=== PATIENT | female | born 1935 | race Caucasian/White ===

== ENCOUNTER 2019-07-07 20:24 | Inpatient (IN) | payer MEDICARE, BC ==
[~2019-07-07] VITALS: Ht 165.1 cm; Wt 62.2 kg
[2019-07-07] MEDS ORDERED: ONDANSETRON 4 MG/2 ML VIAL IV ONE (20:45)
[2019-07-07] MEDS ORDERED: MORPHINE SULFATE 2 MG/1 ML DISP.SYRIN IV ONE (20:45)
[2019-07-07] MEDS ORDERED: MORPHINE SULFATE 4 MG/1 ML DISP.SYRIN ONE ×2 (21:00→22:04)
[2019-07-07] MEDS ORDERED: ONDANSETRON 4 MG/2 ML VIAL ONE (21:00)
[2019-07-07 21:19] LABS: BASOPHILS % (AUTO) 0.5 % (0.0-2.0); EOSINOPHILS # (AUTO) 0.3 K/uL (0.0-0.7); EOSINOPHILS % (AUTO) 2.9 % (0.0-7.0); HEMATOCRIT 31.3 % (31.2-41.9); HEMOGLOBIN 10.6 g/dL (10.9-14.3); LYMPHOCYTES # (AUTO) 1.1 K/uL (20.0-40.0); LYMPHOCYTES % (AUTO) 12.3 % (20.5-51.5); MEAN CORPUSCULAR HEMOGLOBIN 35.2 uug (24.7-32.8); MEAN CORPUSCULAR HGB CONC 34 g/dL (32.3-35.6); MEAN CORPUSCULAR VOLUME 104.1 fL (75.5-95.3); MONOCYTES # (AUTO) 0.6 K/uL (2.0-10.0); MONOCYTES % (AUTO) 6.3 % (0.0-11.0); NEUTROPHILS # (AUTO) 7.2 K/uL (1.8-8.9); PLATELET COUNT (AUTO) 230 K/uL (179-408); RED BLOOD CELL COUNT(AUTO) 3.01 MIL/uL (3.63-4.92); WHITE BLOOD COUNT (AUTO) 9.2 K/uL (3.8-11.8)
[2019-07-07 22:04] LABS: CREATININE 0.8 mg/dL (0.6-1.3); POTASSIUM 3.9 mmol/L (3.5-5.1)
[2019-07-07] MEDS ORDERED: ESCI5TAB PO (22:09)
[2019-07-07] MEDS ORDERED: METO50TA16 PO (22:09)
[2019-07-07] MEDS ORDERED: PANT40TA4 PO (22:09)
[2019-07-07] MEDS ORDERED: DICY20TA11 PO (22:09)
[2019-07-07] MEDS ORDERED: SIMV-46 PO (22:09)
[2019-07-07] MEDS ORDERED: SERT25TA PO (22:09)
[2019-07-07] MEDS ORDERED: ALEN70TA6 PO (22:09)
[2019-07-07] MEDS ORDERED: OXYC-128 PO (22:09)
[2019-07-07 22:10] LABS: BILIRUBIN,DIRECT 0.1 mg/dL (0.0-0.2); BILIRUBIN,TOTAL 0.2 mg/dL (0.2-1.0); TOTAL PROTEIN, SERUM 6.9 g/dL (6.4-8.2)
[2019-07-07] MEDS ORDERED: METH-406 PO (22:11)
[2019-07-07] MEDS ORDERED: MORPHINE SULFATE 4 MG/1 ML DISP.SYRIN IV ONE (22:15)
[2019-07-07] MEDS ORDERED: Z GUARD REMEDY PASTE 57 GM TUBE TOP PRN (22:30)
[2019-07-07] MEDS ORDERED: MAGNESIUM HYDROXIDE 30 ML LIQUID UDC PO PRN (22:30)
[2019-07-07] MEDS ORDERED: ACETAMINOPHEN 325 MG TABLET PO PRN (22:30)
[2019-07-07] MEDS ORDERED: ONDANSETRON 4 MG/2 ML VIAL IV PRN (22:30)
[2019-07-07] MEDS: MORPHINE SULFATE 2 MG/1 ML DISP.SYRIN IV PRN (22:52)
[2019-07-07 22:56] VITALS: BP 122/60
[2019-07-08] VITALS (11 sets, daily range): BP systolic 95–126; BP diastolic 44–64
[2019-07-08] MEDS: OXYCODONE/APAP 5-325 MG TABLET PO PRN ×4 (01:23→12:31)
[2019-07-08] MEDS: MORPHINE SULFATE 2 MG/1 ML DISP.SYRIN IV PRN ×2 (02:54→10:02)
[2019-07-08 06:25] LABS: BASOPHILS % (AUTO) 0.3 % (0.0-2.0); EOSINOPHILS # (AUTO) 0.1 K/uL (0.0-0.7); EOSINOPHILS % (AUTO) 0.8 % (0.0-7.0); HEMATOCRIT 26.7 % (31.2-41.9); LYMPHOCYTES # (AUTO) 1.2 K/uL (20.0-40.0); LYMPHOCYTES % (AUTO) 11.6 % (20.5-51.5); MEAN CORPUSCULAR HEMOGLOBIN 34.4 uug (24.7-32.8); MEAN CORPUSCULAR HGB CONC 34 g/dL (32.3-35.6); MEAN CORPUSCULAR VOLUME 102.2 fL (75.5-95.3); MONOCYTES # (AUTO) 0.9 K/uL (2.0-10.0); MONOCYTES % (AUTO) 8.7 % (0.0-11.0); NEUTROPHILS % (AUTO) 78.6 % (38.5-71.5); PLATELET COUNT (AUTO) 160 K/uL (179-408); RED BLOOD CELL COUNT(AUTO) 2.62 MIL/uL (3.63-4.92); WHITE BLOOD COUNT (AUTO) 10.1 K/uL (3.8-11.8)
[2019-07-08 06:40] LABS: CREATININE 0.7 mg/dL (0.6-1.3); MAGNESIUM 1.3 mg/dL (1.8-2.4); PHOSPHOROUS 2.8 mg/dL (2.5-4.9)
[2019-07-08 07:16] LABS: *BILIRUBIN,URIN NEGATIVE (NEGATIVE); *CLARITY,URINE CLEAR (CLEAR); *COLOR,URINE YELLOW (YELLOW); *KETONES,URINE NEGATIVE (NEGATIVE); *UROBILINOGEN,URINE 0.2 E.U./dl (NORMAL); LEUKOCYTE ESTERASE ,URINE 2+ (NEGATIVE); NITRITE, URINE POSITIVE (NEGATIVE); UGLUCOSE NEGATIVE (NEGATIVE)
[2019-07-08 07:36] LABS: *BLOOD, URINE TRACE (NEGATIVE)
[2019-07-08 07:39] LABS: BACTERIA,URINE MODERATE /HPF (NONE SEEN); SQUAMOUS EPITHELIAL CELL,UR FEW /HPF (NONE SEEN); WBC,URINE 20-50 /HPF (0-3)
[2019-07-08] MEDS: PANTOPRAZOLE SODIUM 40 MG TABLET.DR PO SCH (08:19)
[2019-07-08] MEDS: MAGNESIUM SULFATE/D5W 100 ML IV SCH ×2 (08:19→09:34)
[2019-07-08] MEDS: METOPROLOL TARTRATE 50 MG TABLET PO SCH (09:00)
[2019-07-08] MEDS: DICYCLOMINE HCL 20 MG TABLET PO SCH ×3 (09:00→17:00)
[2019-07-08] MEDS ORDERED: Medication Not On Formulary EA (Sertraline Hcl (Zoloft) 25 MG) PO SCH (09:00)
[2019-07-08] MEDS ORDERED: Medication Not On Formulary EA (Escitalopram Oxalate (Lexapro) 5 MG) PO SCH (09:00)
[2019-07-08] MEDS: ESCITALOPRAM OXALATE 10 MG TABLET PO SCH (09:01)
[2019-07-08] MEDS: SERTRALINE HCL 50 MG TABLET PO SCH (09:02)
[2019-07-08] MEDS ORDERED: IV D5 1/2 NS 1000 ML 1,000 ML IV PRN (09:24)
[2019-07-08] MEDS ORDERED: SEVOFLURANE 250 ML BOTTLE IH ONE (13:19)
[2019-07-08] MEDS ORDERED: DEXAMETHASONE SOD PHOSPHATE 4 MG INJ IV ONE (13:19)
[2019-07-08] MEDS ORDERED: LIDOCAINE-MPF 2% 5 ML VIAL MC ONE (13:19)
[2019-07-08] MEDS ORDERED: PROPOFOL 200 MG/20 ML BOTTLE IV ONE (13:19)
[2019-07-08] MEDS ORDERED: CEFAZOLIN 1 G VIAL MC ONE (13:19)
[2019-07-08] MEDS ORDERED: POLYMYXIN B SULFATE 500,000 UNITS, BACITRACIN 50,000 UNITS, NORMAL SALINE 20 ML MC ONE ×3 (14:30)
[2019-07-08] MEDS ORDERED: BUPIVACAINE 0.25% 30 ML VIAL ONE (16:43)
[2019-07-08] MEDS ORDERED: FENTANYL CITRATE 100 MCG/2 ML AMPUL ONE (17:47)
[2019-07-08 19:57] LABS: BASOPHILS % (AUTO) 0.1 % (0.0-2.0); EOSINOPHILS # (AUTO) 0.1 K/uL (0.0-0.7); EOSINOPHILS % (AUTO) 0.7 % (0.0-7.0); HEMOGLOBIN 9.1 g/dL (10.9-14.3); LYMPHOCYTES # (AUTO) 0.5 K/uL (20.0-40.0); LYMPHOCYTES % (AUTO) 4.4 % (20.5-51.5); MEAN CORPUSCULAR HEMOGLOBIN 34.8 uug (24.7-32.8); MEAN CORPUSCULAR HGB CONC 34 g/dL (32.3-35.6); MEAN CORPUSCULAR VOLUME 103.2 fL (75.5-95.3); MONOCYTES # (AUTO) 0.5 K/uL (2.0-10.0); MONOCYTES % (AUTO) 4.6 % (0.0-11.0); NEUTROPHILS # (AUTO) 10.4 K/uL (1.8-8.9); NEUTROPHILS % (AUTO) 90.2 % (38.5-71.5); PLATELET COUNT (AUTO) 208 K/uL (179-408); RED BLOOD CELL COUNT(AUTO) 2.62 MIL/uL (3.63-4.92); WHITE BLOOD COUNT (AUTO) 11.5 K/uL (3.8-11.8)
[2019-07-08 20:05] LABS: CREATININE 0.7 mg/dL (0.6-1.3); POTASSIUM 4.1 mmol/L (3.5-5.1)
[2019-07-08] MEDS ORDERED: IV LACTATED RINGERS SOLUTION 1,000 ML IV PRN (20:45)
[2019-07-08] MEDS: SIMVASTATIN 20 MG TABLET PO SCH (21:18)
[2019-07-09] VITALS: BP 114/42
[2019-07-09] MEDS ORDERED: CEFAZOLIN 2 G in IV DEXTROSE 5% 100 ML IV SCH (02:00)
[2019-07-09] MEDS: OXYCODONE/APAP 5-325 MG TABLET PO PRN ×4 (05:15→20:59)
[2019-07-09 05:35] VITALS: BP 115/50
[2019-07-09 06:30] LABS: BASOPHILS % (AUTO) 0.1 % (0.0-2.0); HEMATOCRIT 24.2 % (31.2-41.9); HEMOGLOBIN 8.6 g/dL (10.9-14.3); LYMPHOCYTES # (AUTO) 0.5 K/uL (20.0-40.0); LYMPHOCYTES % (AUTO) 3.7 % (20.5-51.5); MEAN CORPUSCULAR HEMOGLOBIN 36.3 uug (24.7-32.8); MEAN CORPUSCULAR HGB CONC 36 g/dL (32.3-35.6); MEAN CORPUSCULAR VOLUME 101.9 fL (75.5-95.3); MONOCYTES % (AUTO) 7.4 % (0.0-11.0); NEUTROPHILS # (AUTO) 11.6 K/uL (1.8-8.9); NEUTROPHILS % (AUTO) 88.8 % (38.5-71.5); PLATELET COUNT (AUTO) 212 K/uL (179-408)
[2019-07-09 06:41] LABS: RED BLOOD CELL COUNT(AUTO) 2.38 MIL/uL (3.63-4.92)
[2019-07-09 06:54] LABS: CREATININE 0.7 mg/dL (0.6-1.3); MAGNESIUM 1.7 mg/dL (1.8-2.4); POTASSIUM 4.6 mmol/L (3.5-5.1)
[2019-07-09] MEDS: PANTOPRAZOLE SODIUM 40 MG TABLET.DR PO SCH (07:30)
[2019-07-09] MEDS: MORPHINE SULFATE 2 MG/1 ML DISP.SYRIN IV PRN (08:12)
[2019-07-09] MEDS: METOPROLOL TARTRATE 50 MG TABLET PO SCH (09:00)
[2019-07-09] MEDS: ENOXAPARIN SODIUM 40 MG/0.4 ML DISP.SYRIN SQ SCH (09:07)
[2019-07-09] MEDS: ESCITALOPRAM OXALATE 10 MG TABLET PO SCH (09:11)
[2019-07-09] MEDS: SERTRALINE HCL 50 MG TABLET PO SCH (09:12)
[2019-07-09] MEDS: DICYCLOMINE HCL 20 MG TABLET PO SCH ×3 (09:12→16:39)
[2019-07-09] MEDS: CEFTRIAXONE 1 G in IV DEXTROSE 5% 50 ML IV SCH (11:16)
[2019-07-09 11:24] VITALS: BP 116/41
[2019-07-09 15:08] VITALS: BP 107/44
[2019-07-09] MEDS: MAGNESIUM SULFATE/D5W 100 ML IV SCH ×2 (16:28→19:27)
[2019-07-09 20:00] VITALS: BP 100/45
[2019-07-09] MEDS: SIMVASTATIN 20 MG TABLET PO SCH (20:24)
[2019-07-10] MEDS: OXYCODONE/APAP 5-325 MG TABLET PO PRN ×3 (01:54→10:46)
[2019-07-10 04:00] VITALS: BP 112/48
[2019-07-10] MEDS: PANTOPRAZOLE SODIUM 40 MG TABLET.DR PO SCH (06:38)
[2019-07-10 06:48] LABS: CREATININE 0.6 mg/dL (0.6-1.3); MAGNESIUM 1.9 mg/dL (1.8-2.4); POTASSIUM 4.3 mmol/L (3.5-5.1)
[2019-07-10] MEDS: DICYCLOMINE HCL 20 MG TABLET PO SCH ×2 (08:22→12:49)
[2019-07-10] MEDS: ESCITALOPRAM OXALATE 10 MG TABLET PO SCH (08:22)
[2019-07-10] MEDS: SERTRALINE HCL 50 MG TABLET PO SCH (08:22)
[2019-07-10] MEDS: ENOXAPARIN SODIUM 40 MG/0.4 ML DISP.SYRIN SQ SCH (08:24)
[2019-07-10] MEDS: CEFTRIAXONE 1 G in IV DEXTROSE 5% 50 ML IV SCH (09:21)
[2019-07-10 11:08] VITALS: BP 109/63
== END 2019-07-10 13:20 | DRG 482 ==
LOC: ER 20:25 → MERGE 22:21 → MEDSURG3 22:21
PROVIDERS: ADMIT Internal Medicine; ATTEND Internal Medicine
PROC: 0QS606Z Reposition Right Upper Femur with Intramedullary Internal Fixation Device, Open Approach (ICD-10-PCS; principal; 2019-07-08)
DX: M80.051A Age-related osteoporosis with current pathological fracture, right femur, initial encounter for fracture (principal); W18.30XA Fall on same level, unspecified, initial encounter; Y92.019 Unspecified place in single-family (private) house as the place of occurrence of the external cause; Y99.9 Unspecified external cause status; I27.20 Pulmonary hypertension, unspecified; K58.9 Irritable bowel syndrome, unspecified; K21.9 Gastro-esophageal reflux disease without esophagitis; M81.0 Age-related osteoporosis without current pathological fracture; G89.4 Chronic pain syndrome; E78.5 Hyperlipidemia, unspecified; Z79.899 Other long term (current) drug therapy; Z66 Do not resuscitate; I08.1 Rheumatic disorders of both mitral and tricuspid valves; F41.9 Anxiety disorder, unspecified; F32.9 Major depressive disorder, single episode, unspecified; I11.9 Hypertensive heart disease without heart failure; M47.812 Spondylosis without myelopathy or radiculopathy, cervical region; M47.9 Spondylosis, unspecified; E78.00 Pure hypercholesterolemia, unspecified
CPT/HCPCS: 36415; 70030-TC; 70450; 71045; 72125; 73502; 73503; 73551; 83735; 84100; 85025; 85730; 87077; 87086; 93005; 93307; A4649; A4663; C1713; C1769; G0378; J0690; J0696; J1100; J1650; J2270; J2405; J3010; J3475; J3490; J7040; J7060; J7120

== ENCOUNTER 2019-07-10 13:39 | Inpatient (IN) | payer MEDICARE, BC ==
[~2019-07-10] VITALS: Ht 170.2 cm; Wt 57.2 kg
[~2019-07-10 13:39] MED LIST: ALEN70TA6 PO; DICY20TA11 PO; ESCI5TAB PO; METH-406 PO; METO50TA16 PO; OXYC-128 PO; PANT40TA4 PO; SERT25TA PO; SIMV-46 PO
[2019-07-10] MEDS ORDERED: HYDROCODONE/APAP 5-325MG TABLET PO PRN (13:45)
[2019-07-10] MEDS ORDERED: Z GUARD REMEDY PASTE 57 GM TUBE TOP PRN (13:45)
[2019-07-10] MEDS ORDERED: ACETAMINOPHEN 325 MG TABLET PO PRN (13:45)
[2019-07-10] MEDS ORDERED: ZOLPIDEM 5 MG TABLET PO PRN (13:45)
[2019-07-10] MEDS ORDERED: ONDANSETRON 4 MG/2 ML VIAL IV PRN (13:45)
[2019-07-10] MEDS ORDERED: MAGNESIUM HYDROXIDE 30 ML LIQUID UDC PO PRN (13:45)
[2019-07-10 14:01] VITALS: BP 104/43
[2019-07-10 16:31] VITALS: BP 91/45
[2019-07-10] MEDS: OXYCODONE/APAP 5-325 MG TABLET PO PRN ×2 (16:36→22:47)
[2019-07-10] MEDS: DICYCLOMINE HCL 20 MG TABLET PO SCH (16:43)
[2019-07-10] MEDS ORDERED: ENOXAPARIN SODIUM 40 MG/0.4 ML DISP.SYRIN SQ SCH (19:00)
[2019-07-10] MEDS ORDERED: DOCUSATE SODIUM 100 MG CAPSULE PO SCH (21:00)
[2019-07-10] MEDS: SIMVASTATIN 20 MG TABLET PO SCH (21:31)
[2019-07-10] MEDS: METHOCARBAMOL 750 MG TABLET PO SCH (21:32)
[2019-07-10 22:40] VITALS: BP 102/38
[2019-07-11] MEDS: OXYCODONE/APAP 5-325 MG TABLET PO PRN ×4 (04:34→23:03)
[2019-07-11 05:24] VITALS: BP 112/75
[2019-07-11] MEDS: METHOCARBAMOL 750 MG TABLET PO SCH ×3 (05:48→21:28)
[2019-07-11] MEDS: PANTOPRAZOLE SODIUM 40 MG TABLET.DR PO SCH (06:37)
[2019-07-11] MEDS ORDERED: PANTOPRAZOLE SODIUM 40 MG TABLET.DR PO SCH (07:00)
[2019-07-11 07:30] VITALS: BP 104/45
[2019-07-11] MEDS: METOPROLOL TARTRATE 50 MG TABLET PO SCH (09:00)
[2019-07-11] MEDS: ESCITALOPRAM OXALATE 10 MG TABLET PO SCH (09:01)
[2019-07-11] MEDS: DICYCLOMINE HCL 20 MG TABLET PO SCH ×3 (09:01→17:33)
[2019-07-11] MEDS: SERTRALINE HCL 50 MG TABLET PO SCH (09:01)
[2019-07-11] MEDS: ENOXAPARIN SODIUM 40 MG/0.4 ML DISP.SYRIN SQ SCH (09:15)
[2019-07-11] MEDS ORDERED: CEFTRIAXONE 1 G in IV DEXTROSE 5% 50 ML IV SCH (10:00)
[2019-07-11 16:28] VITALS: BP 104/45
[2019-07-11 20:31] VITALS: BP 105/60
[2019-07-11] MEDS: SIMVASTATIN 20 MG TABLET PO SCH (20:42)
[2019-07-11] MEDS: CEphaleXIN 500 MG CAPSULE PO SCH (20:44)
[2019-07-12 05:34] VITALS: BP 103/45
[2019-07-12] MEDS: METHOCARBAMOL 750 MG TABLET PO SCH ×3 (06:05→21:32)
[2019-07-12] MEDS: PANTOPRAZOLE SODIUM 40 MG TABLET.DR PO SCH (06:05)
[2019-07-12 07:30] VITALS: BP 134/41
[2019-07-12] MEDS: ESCITALOPRAM OXALATE 10 MG TABLET PO SCH (08:43)
[2019-07-12] MEDS: OXYCODONE/APAP 5-325 MG TABLET PO PRN ×3 (08:44→22:30)
[2019-07-12] MEDS: CEphaleXIN 500 MG CAPSULE PO SCH ×2 (08:44→21:07)
[2019-07-12] MEDS: SERTRALINE HCL 50 MG TABLET PO SCH (08:44)
[2019-07-12] MEDS: DICYCLOMINE HCL 20 MG TABLET PO SCH ×3 (08:46→17:28)
[2019-07-12] MEDS: ENOXAPARIN SODIUM 40 MG/0.4 ML DISP.SYRIN SQ SCH (08:54)
[2019-07-12] MEDS: METOPROLOL TARTRATE 50 MG TABLET PO SCH (08:55)
[2019-07-12 16:00] VITALS: BP 115/50
[2019-07-12] MEDS: SIMVASTATIN 20 MG TABLET PO SCH (21:07)
[2019-07-12 23:07] VITALS: BP 121/46
[2019-07-13] MEDS ORDERED: OXYCODONE HCL 5 MG TABLET PO PRN
[2019-07-13] MEDS: OXYCODONE HCL 5 MG TABLET PO PRN ×4 (01:42→17:33)
[2019-07-13 04:10] VITALS: BP 101/50
[2019-07-13] MEDS: METHOCARBAMOL 750 MG TABLET PO SCH ×3 (05:17→21:44)
[2019-07-13] MEDS: PANTOPRAZOLE SODIUM 40 MG TABLET.DR PO SCH (06:15)
[2019-07-13 07:52] VITALS: BP 91/48
[2019-07-13] MEDS: ESCITALOPRAM OXALATE 10 MG TABLET PO SCH (08:08)
[2019-07-13] MEDS: DICYCLOMINE HCL 20 MG TABLET PO SCH ×3 (08:08→17:34)
[2019-07-13] MEDS: CEphaleXIN 500 MG CAPSULE PO SCH ×2 (08:09→20:37)
[2019-07-13] MEDS: SERTRALINE HCL 50 MG TABLET PO SCH (08:09)
[2019-07-13] MEDS: METOPROLOL TARTRATE 50 MG TABLET PO SCH (08:10)
[2019-07-13] MEDS: ENOXAPARIN SODIUM 40 MG/0.4 ML DISP.SYRIN SQ SCH (08:15)
[2019-07-13 16:00] VITALS: BP 121/52
[2019-07-13 19:53] VITALS: BP 102/50
[2019-07-13] MEDS: SIMVASTATIN 20 MG TABLET PO SCH (20:37)
[2019-07-13] MEDS: OXYCODONE HCL 10 MG TAB.SR.12H PO SCH (20:38)
[2019-07-14] MEDS: OXYCODONE/APAP 5-325 MG TABLET PO PRN ×3 (02:53→17:52)
[2019-07-14 06:00] VITALS: BP 101/45
[2019-07-14] MEDS: METHOCARBAMOL 750 MG TABLET PO SCH ×3 (06:02→21:48)
[2019-07-14] MEDS: PANTOPRAZOLE SODIUM 40 MG TABLET.DR PO SCH (06:02)
[2019-07-14 07:43] VITALS: BP 110/44
[2019-07-14] MEDS: ESCITALOPRAM OXALATE 10 MG TABLET PO SCH (08:47)
[2019-07-14] MEDS: OXYCODONE HCL 10 MG TAB.SR.12H PO SCH ×2 (08:48→20:23)
[2019-07-14] MEDS: CEphaleXIN 500 MG CAPSULE PO SCH ×2 (08:49→20:23)
[2019-07-14] MEDS: DICYCLOMINE HCL 20 MG TABLET PO SCH ×3 (08:49→16:58)
[2019-07-14] MEDS: SERTRALINE HCL 50 MG TABLET PO SCH (08:50)
[2019-07-14] MEDS: ENOXAPARIN SODIUM 40 MG/0.4 ML DISP.SYRIN SQ SCH (08:56)
[2019-07-14] MEDS: METOPROLOL TARTRATE 50 MG TABLET PO SCH (09:00)
[2019-07-14 15:04] VITALS: BP 119/51
[2019-07-14] MEDS ORDERED: BISACODYL 10 MG SUPP.RECT RC PRN (19:15)
[2019-07-14 20:03] VITALS: BP 116/58
[2019-07-14] MEDS: SIMVASTATIN 20 MG TABLET PO SCH (20:23)
[2019-07-14] MEDS: SENNOSIDES 1 TABLET PO SCH (20:24)
[2019-07-15] MEDS: OXYCODONE/APAP 5-325 MG TABLET PO PRN ×4 (00:09→13:57)
[2019-07-15 05:21] VITALS: BP 95/51
[2019-07-15] MEDS: METHOCARBAMOL 750 MG TABLET PO SCH ×3 (06:00→21:04)
[2019-07-15] MEDS: PANTOPRAZOLE SODIUM 40 MG TABLET.DR PO SCH (06:00)
[2019-07-15 08:00] VITALS: BP 129/49
[2019-07-15] MEDS: OXYCODONE HCL 10 MG TAB.SR.12H PO SCH ×2 (08:08→21:05)
[2019-07-15] MEDS: ESCITALOPRAM OXALATE 10 MG TABLET PO SCH (08:09)
[2019-07-15] MEDS: DOCUSATE SODIUM 100 MG CAPSULE PO SCH (08:09)
[2019-07-15] MEDS: SERTRALINE HCL 50 MG TABLET PO SCH (08:10)
[2019-07-15] MEDS: DICYCLOMINE HCL 20 MG TABLET PO SCH ×3 (08:10→16:50)
[2019-07-15] MEDS: CEphaleXIN 500 MG CAPSULE PO SCH ×2 (08:11→21:05)
[2019-07-15] MEDS: ENOXAPARIN SODIUM 40 MG/0.4 ML DISP.SYRIN SQ SCH (08:12)
[2019-07-15] MEDS: METOPROLOL TARTRATE 50 MG TABLET PO SCH (08:16)
[2019-07-15 17:48] VITALS: BP 106/48
[2019-07-15 19:40] VITALS: BP 106/48
[2019-07-15] MEDS: SIMVASTATIN 20 MG TABLET PO SCH (21:05)
[2019-07-15] MEDS: SENNOSIDES 1 TABLET PO SCH (21:05)
[2019-07-16] MEDS: OXYCODONE/APAP 5-325 MG TABLET PO PRN ×3 (03:10→18:32)
[2019-07-16] MEDS: PANTOPRAZOLE SODIUM 40 MG TABLET.DR PO SCH (06:18)
[2019-07-16] MEDS: OXYCODONE HCL 10 MG TAB.SR.12H PO SCH ×3 (06:19→21:15)
[2019-07-16] MEDS: METHOCARBAMOL 750 MG TABLET PO SCH ×3 (06:19→21:15)
[2019-07-16 06:48] VITALS: BP 115/45
[2019-07-16 08:00] VITALS: BP 100/50
[2019-07-16] MEDS: DOCUSATE SODIUM 100 MG CAPSULE PO SCH (08:32)
[2019-07-16] MEDS: ESCITALOPRAM OXALATE 10 MG TABLET PO SCH (08:32)
[2019-07-16] MEDS: SERTRALINE HCL 50 MG TABLET PO SCH (08:36)
[2019-07-16] MEDS: ENOXAPARIN SODIUM 40 MG/0.4 ML DISP.SYRIN SQ SCH (08:36)
[2019-07-16] MEDS: DICYCLOMINE HCL 20 MG TABLET PO SCH ×3 (08:36→17:16)
[2019-07-16] MEDS: METOPROLOL TARTRATE 50 MG TABLET PO SCH (08:37)
[2019-07-16] MEDS: CLONAZEPAM 0.5 MG TABLET PO PRN (12:13)
[2019-07-16 20:12] VITALS: BP 113/61
[2019-07-16] MEDS: SENNOSIDES 1 TABLET PO SCH (21:14)
[2019-07-16] MEDS: SIMVASTATIN 20 MG TABLET PO SCH (21:14)
[2019-07-17] VITALS (9 sets, daily range): BP systolic 95–107; BP diastolic 46–58
[2019-07-17] MEDS: OXYCODONE/APAP 5-325 MG TABLET PO PRN ×4 (03:34→22:44)
[2019-07-17] MEDS: PANTOPRAZOLE SODIUM 40 MG TABLET.DR PO SCH (06:07)
[2019-07-17] MEDS: OXYCODONE HCL 10 MG TAB.SR.12H PO SCH ×3 (06:07→21:01)
[2019-07-17] MEDS: METHOCARBAMOL 750 MG TABLET PO SCH ×3 (06:07→21:00)
[2019-07-17 07:31] LABS: THYROID STIMULATING HORMONE 2.936 mIU/mL (0.358-3.740)
[2019-07-17 07:48] LABS: CREATININE 0.5 mg/dL (0.6-1.3); PHOSPHOROUS 3.9 mg/dL (2.5-4.9)
[2019-07-17 07:49] LABS: ALANINE AMINOTRANSFERASE 13 U/L (14-59); ALKALINE PHOSPHATASE 46 U/L (50-136); ASPARTATE AMINOTRANSFERASE 20 U/L (15-37); CHOLESTEROL 132 mg/dL (<200); HDL CHOLESTEROL 80 mg/dL (40-60); MAGNESIUM 1.6 mg/dL (1.8-2.4); TOTAL PROTEIN, SERUM 5.8 g/dL (6.4-8.2); TRIGLYCERIDES 73 MG/DL (30-150)
[2019-07-17 07:50] LABS: BILIRUBIN,TOTAL 0.8 mg/dL (0.2-1.0); CARBON DIOXIDE 33 mmol/L (21-32); CHLORIDE 98 mmol/L (98-107); GLUCOSE 100 mg/dL (74-106); UREA NITROGEN, BLOOD 8 mg/dL (7-18)
[2019-07-17 08:06] LABS: WHITE BLOOD COUNT (AUTO) 9.8 K/UL (4.0-11.2)
[2019-07-17 08:07] LABS: LYMPHOCYTES % (AUTO) 10.1 % (20.5-51.5); MEAN CORPUSCULAR HEMOGLOBIN 35.4 UUG (27.0-31.0); MEAN CORPUSCULAR HGB CONC 33 g/dL (32.0-37.0); MEAN CORPUSCULAR VOLUME 106.7 FL (81.0-99.0); NEUTROPHILS % (AUTO) 71.9 % (38.5-71.5); PLATELET COUNT (AUTO) 388 K/UL (150-450)
[2019-07-17 08:08] LABS: BASOPHILS # (AUTO) 0.1 K/uL (0.0-8.0); BASOPHILS % (AUTO) 0.6 % (0.0-2.0); EOSINOPHILS # (AUTO) 0.4 K/uL (0.0-0.7); EOSINOPHILS % (AUTO) 3.9 % (0.0-7.0); MONOCYTES # (AUTO) 1.3 K/UL (0.1-1.30); MONOCYTES % (AUTO) 13.5 % (0.0-11.0)
[2019-07-17 08:11] LABS: RED BLOOD CELL COUNT(AUTO) 1.97 MIL/UL (4.2-5.4)
[2019-07-17] MEDS: DOCUSATE SODIUM 100 MG CAPSULE PO SCH (08:13)
[2019-07-17] MEDS: ESCITALOPRAM OXALATE 10 MG TABLET PO SCH (08:14)
[2019-07-17] MEDS: DICYCLOMINE HCL 20 MG TABLET PO SCH ×3 (08:15→16:23)
[2019-07-17] MEDS: SERTRALINE HCL 50 MG TABLET PO SCH (08:16)
[2019-07-17] MEDS: METOPROLOL TARTRATE 50 MG TABLET PO SCH (08:25)
[2019-07-17] MEDS: ENOXAPARIN SODIUM 40 MG/0.4 ML DISP.SYRIN SQ SCH (09:00)
[2019-07-17] MEDS ORDERED: MAGNESIUM OXIDE 400 MG TABLET PO ONE (09:15)
[2019-07-17] MEDS: SIMVASTATIN 20 MG TABLET PO SCH (21:00)
[2019-07-17] MEDS: SENNOSIDES 1 TABLET PO SCH (21:00)
[2019-07-18] MEDS: PANTOPRAZOLE SODIUM 40 MG TABLET.DR PO SCH (06:02)
[2019-07-18] MEDS: OXYCODONE HCL 10 MG TAB.SR.12H PO SCH ×3 (06:02→21:02)
[2019-07-18] MEDS: METHOCARBAMOL 750 MG TABLET PO SCH ×3 (06:02→21:02)
[2019-07-18 06:13] VITALS: BP 123/47
[2019-07-18 07:39] LABS: HEMOGLOBIN 7.8 g/dL (10.9-14.3); MEAN CORPUSCULAR HEMOGLOBIN 34.6 uug (24.7-32.8); MEAN CORPUSCULAR VOLUME 103.6 fL (75.5-95.3); WHITE BLOOD COUNT (AUTO) 8.9 K/uL (3.8-11.8)
[2019-07-18 07:40] LABS: EOSINOPHILS # (AUTO) 0.3 K/uL (0.0-0.7); EOSINOPHILS % (AUTO) 3.8 % (0.0-7.0); LYMPHOCYTES # (AUTO) 0.9 K/uL (20.0-40.0); LYMPHOCYTES % (AUTO) 9.8 % (20.5-51.5); MEAN CORPUSCULAR HGB CONC 33 g/dL (32.3-35.6); MONOCYTES # (AUTO) 1.2 K/uL (2.0-10.0); MONOCYTES % (AUTO) 13.8 % (0.0-11.0); NEUTROPHILS # (AUTO) 6.4 K/uL (1.8-8.9); NEUTROPHILS % (AUTO) 71.6 % (38.5-71.5); PLATELET COUNT (AUTO) 384 K/uL (179-408)
[2019-07-18 07:41] LABS: BASOPHILS # (AUTO) 0.1 K/uL (0.0-8.0); HEMATOCRIT 23.4 % (31.2-41.9); RED BLOOD CELL COUNT(AUTO) 2.25 MIL/uL (3.63-4.92)
[2019-07-18 08:00] VITALS: BP 97/50
[2019-07-18] MEDS: DOCUSATE SODIUM 100 MG CAPSULE PO SCH (08:28)
[2019-07-18] MEDS: DICYCLOMINE HCL 20 MG TABLET PO SCH ×3 (08:28→17:01)
[2019-07-18] MEDS: ESCITALOPRAM OXALATE 10 MG TABLET PO SCH (08:28)
[2019-07-18] MEDS: SERTRALINE HCL 50 MG TABLET PO SCH (08:29)
[2019-07-18] MEDS: ENOXAPARIN SODIUM 40 MG/0.4 ML DISP.SYRIN SQ SCH (08:35)
[2019-07-18] MEDS: OXYCODONE/APAP 5-325 MG TABLET PO PRN ×2 (10:57→21:03)
[2019-07-18 16:28] VITALS: BP 100/50
[2019-07-18] MEDS: CLONAZEPAM 0.5 MG TABLET PO PRN (18:53)
[2019-07-18 19:38] VITALS: BP 102/57
[2019-07-18] MEDS: SENNOSIDES 1 TABLET PO SCH (21:02)
[2019-07-18] MEDS: SIMVASTATIN 20 MG TABLET PO SCH (21:02)
[2019-07-19 05:26] VITALS: BP 130/53
[2019-07-19] MEDS: OXYCODONE HCL 10 MG TAB.SR.12H PO SCH ×3 (06:02→21:15)
[2019-07-19] MEDS: PANTOPRAZOLE SODIUM 40 MG TABLET.DR PO SCH (06:03)
[2019-07-19] MEDS: METHOCARBAMOL 750 MG TABLET PO SCH ×3 (06:03→21:15)
[2019-07-19] MEDS: ESCITALOPRAM OXALATE 10 MG TABLET PO SCH (08:32)
[2019-07-19] MEDS: DOCUSATE SODIUM 100 MG CAPSULE PO SCH (08:32)
[2019-07-19] MEDS: SERTRALINE HCL 50 MG TABLET PO SCH (08:34)
[2019-07-19] MEDS: OXYCODONE/APAP 5-325 MG TABLET PO PRN ×2 (08:34→17:30)
[2019-07-19] MEDS: DICYCLOMINE HCL 20 MG TABLET PO SCH ×3 (08:35→17:29)
[2019-07-19] MEDS: MIRALAX 17 GM POWD.PACK PO PRN (14:58)
[2019-07-19] MEDS: PROTEIN SUPPLEMENT (PROSTAT) 30 ML LIQUID PO SCH (17:32)
[2019-07-19 17:42] VITALS: BP 103/56
[2019-07-19] MEDS: SENNOSIDES 1 TABLET PO SCH (21:16)
[2019-07-19] MEDS: SIMVASTATIN 20 MG TABLET PO SCH (21:16)
[2019-07-19 21:23] VITALS: BP 99/44
[2019-07-20] MEDS: METHOCARBAMOL 750 MG TABLET PO SCH ×3 (05:25→21:16)
[2019-07-20] MEDS: OXYCODONE HCL 10 MG TAB.SR.12H PO SCH ×3 (05:25→21:17)
[2019-07-20 05:26] VITALS: BP 103/55
[2019-07-20] MEDS: PANTOPRAZOLE SODIUM 40 MG TABLET.DR PO SCH (06:05)
[2019-07-20] MEDS: ESCITALOPRAM OXALATE 10 MG TABLET PO SCH (08:36)
[2019-07-20] MEDS: DICYCLOMINE HCL 20 MG TABLET PO SCH ×3 (08:37→17:09)
[2019-07-20] MEDS: DOCUSATE SODIUM 100 MG CAPSULE PO SCH (08:37)
[2019-07-20] MEDS: SERTRALINE HCL 50 MG TABLET PO SCH (08:38)
[2019-07-20] MEDS: MIRALAX 17 GM POWD.PACK PO PRN (08:38)
[2019-07-20] MEDS: OXYCODONE/APAP 5-325 MG TABLET PO PRN ×2 (08:41→19:48)
[2019-07-20] MEDS: PROTEIN SUPPLEMENT (PROSTAT) 30 ML LIQUID PO SCH ×3 (08:51→17:09)
[2019-07-20 17:00] VITALS: BP 123/56
[2019-07-20 19:30] VITALS: BP 140/56
[2019-07-20] MEDS: SENNOSIDES 1 TABLET PO SCH (21:16)
[2019-07-20] MEDS: SIMVASTATIN 20 MG TABLET PO SCH (21:17)
[2019-07-21] MEDS: METHOCARBAMOL 750 MG TABLET PO SCH ×3 (06:08→21:01)
[2019-07-21] MEDS: OXYCODONE HCL 10 MG TAB.SR.12H PO SCH ×3 (06:08→21:03)
[2019-07-21] MEDS: PANTOPRAZOLE SODIUM 40 MG TABLET.DR PO SCH (06:08)
[2019-07-21 06:14] VITALS: BP 115/57
[2019-07-21 08:00] VITALS: BP 105/53
[2019-07-21] MEDS: DOCUSATE SODIUM 100 MG CAPSULE PO SCH (09:05)
[2019-07-21] MEDS: ESCITALOPRAM OXALATE 10 MG TABLET PO SCH (09:05)
[2019-07-21] MEDS: DICYCLOMINE HCL 20 MG TABLET PO SCH ×3 (09:06→18:04)
[2019-07-21] MEDS: SERTRALINE HCL 50 MG TABLET PO SCH (09:06)
[2019-07-21] MEDS: PROTEIN SUPPLEMENT (PROSTAT) 30 ML LIQUID PO SCH ×3 (09:07→18:05)
[2019-07-21] MEDS: OXYCODONE/APAP 5-325 MG TABLET PO PRN ×3 (09:13→22:51)
[2019-07-21 20:00] VITALS: BP 105/55
[2019-07-21] MEDS: SENNOSIDES 1 TABLET PO SCH ×2 (21:00→21:01)
[2019-07-21] MEDS: SIMVASTATIN 20 MG TABLET PO SCH (21:01)
[2019-07-22 05:00] VITALS: BP 135/55
[2019-07-22] MEDS: PANTOPRAZOLE SODIUM 40 MG TABLET.DR PO SCH (06:01)
[2019-07-22] MEDS: METHOCARBAMOL 750 MG TABLET PO SCH ×3 (06:01→22:12)
[2019-07-22] MEDS: OXYCODONE HCL 10 MG TAB.SR.12H PO SCH ×3 (06:01→22:13)
[2019-07-22 07:55] VITALS: BP 112/58
[2019-07-22] MEDS: DICYCLOMINE HCL 20 MG TABLET PO SCH ×3 (08:19→17:59)
[2019-07-22] MEDS: PROTEIN SUPPLEMENT (PROSTAT) 30 ML LIQUID PO SCH ×3 (08:19→17:59)
[2019-07-22] MEDS: DOCUSATE SODIUM 100 MG CAPSULE PO SCH (08:19)
[2019-07-22] MEDS: SERTRALINE HCL 50 MG TABLET PO SCH (08:19)
[2019-07-22] MEDS: ESCITALOPRAM OXALATE 10 MG TABLET PO SCH (08:19)
[2019-07-22] MEDS: OXYCODONE/APAP 5-325 MG TABLET PO PRN ×3 (08:41→18:15)
[2019-07-22 16:52] VITALS: BP 125/68
[2019-07-22 20:00] VITALS: BP 111/54
[2019-07-22] MEDS: SIMVASTATIN 20 MG TABLET PO SCH (20:46)
[2019-07-22] MEDS: SENNOSIDES 1 TABLET PO SCH (20:46)
[2019-07-23 06:11] VITALS: BP 127/54
[2019-07-23] MEDS: PANTOPRAZOLE SODIUM 40 MG TABLET.DR PO SCH (06:24)
[2019-07-23] MEDS: METHOCARBAMOL 750 MG TABLET PO SCH ×4 (06:24→21:25)
[2019-07-23] MEDS: OXYCODONE HCL 10 MG TAB.SR.12H PO SCH ×3 (06:25→21:25)
[2019-07-23 08:00] VITALS: BP 115/55
[2019-07-23] MEDS: SERTRALINE HCL 50 MG TABLET PO SCH (08:28)
[2019-07-23] MEDS: OXYCODONE/APAP 5-325 MG TABLET PO PRN ×3 (08:28→17:04)
[2019-07-23] MEDS: DOCUSATE SODIUM 100 MG CAPSULE PO SCH (08:28)
[2019-07-23] MEDS: ESCITALOPRAM OXALATE 10 MG TABLET PO SCH (08:28)
[2019-07-23] MEDS: MIRALAX 17 GM POWD.PACK PO PRN (08:29)
[2019-07-23] MEDS: PROTEIN SUPPLEMENT (PROSTAT) 30 ML LIQUID PO SCH ×3 (08:33→17:04)
[2019-07-23] MEDS: DICYCLOMINE HCL 20 MG TABLET PO SCH ×4 (09:18→17:04)
[2019-07-23 16:33] VITALS: BP 133/68
[2019-07-23 19:30] VITALS: BP 98/55
[2019-07-23] MEDS: SIMVASTATIN 20 MG TABLET PO SCH (21:25)
[2019-07-23] MEDS: SENNOSIDES 1 TABLET PO SCH (21:25)
[2019-07-23 22:19] LABS: *OCCULT BLOOD STOOL NEGATIVE (NEGATIVE)
[2019-07-24 04:44] VITALS: BP 117/62
[2019-07-24] MEDS: METHOCARBAMOL 750 MG TABLET PO SCH ×3 (06:02→22:41)
[2019-07-24] MEDS: PANTOPRAZOLE SODIUM 40 MG TABLET.DR PO SCH (06:02)
[2019-07-24] MEDS: OXYCODONE HCL 10 MG TAB.SR.12H PO SCH ×3 (06:03→22:41)
[2019-07-24] MEDS: DOCUSATE SODIUM 100 MG CAPSULE PO SCH (08:29)
[2019-07-24] MEDS: ESCITALOPRAM OXALATE 10 MG TABLET PO SCH (08:29)
[2019-07-24] MEDS: PROTEIN SUPPLEMENT (PROSTAT) 30 ML LIQUID PO SCH ×3 (08:29→16:45)
[2019-07-24] MEDS: DICYCLOMINE HCL 20 MG TABLET PO SCH ×3 (08:30→16:45)
[2019-07-24] MEDS: SERTRALINE HCL 50 MG TABLET PO SCH (08:30)
[2019-07-24] MEDS: OXYCODONE/APAP 5-325 MG TABLET PO PRN ×2 (08:39→11:57)
[2019-07-24 09:15] LABS: BASOPHILS # (AUTO) 0.1 K/uL (0.0-8.0); BASOPHILS % (AUTO) 0.7 % (0.0-2.0); EOSINOPHILS # (AUTO) 0.3 K/uL (0.0-0.7); HEMATOCRIT 29.1 % (31.2-41.9); HEMOGLOBIN 9.6 g/dL (10.9-14.3); LYMPHOCYTES # (AUTO) 0.9 K/uL (20.0-40.0); LYMPHOCYTES % (AUTO) 10.9 % (20.5-51.5); MEAN CORPUSCULAR HEMOGLOBIN 34.3 uug (24.7-32.8); MEAN CORPUSCULAR HGB CONC 33 g/dL (32.3-35.6); MEAN CORPUSCULAR VOLUME 103.7 fL (75.5-95.3); MONOCYTES # (AUTO) 0.8 K/uL (2.0-10.0); NEUTROPHILS # (AUTO) 6.6 K/uL (1.8-8.9); NEUTROPHILS % (AUTO) 76.4 % (38.5-71.5); PLATELET COUNT (AUTO) 468 K/uL (179-408); RED BLOOD CELL COUNT(AUTO) 2.81 MIL/uL (3.63-4.92); WHITE BLOOD COUNT (AUTO) 8.6 K/uL (3.8-11.8)
[2019-07-24 09:17] LABS: CARBON DIOXIDE 29 mmol/L (21-32); CHLORIDE 99 mmol/L (98-107); CREATININE 0.5 mg/dL (0.6-1.3); GLUCOSE 154 mg/dL (74-106); MAGNESIUM 1.6 mg/dL (1.8-2.4); PHOSPHOROUS 3.7 mg/dL (2.5-4.9); UREA NITROGEN, BLOOD 12 mg/dL (7-18)
[2019-07-24 19:22] VITALS: BP 102/54
[2019-07-24 20:00] VITALS: BP 113/57
[2019-07-24] MEDS: SIMVASTATIN 20 MG TABLET PO SCH (20:32)
[2019-07-24] MEDS: SENNOSIDES 1 TABLET PO SCH (20:32)
[2019-07-25 04:49] VITALS: BP 128/60
[2019-07-25] MEDS: OXYCODONE HCL 10 MG TAB.SR.12H PO SCH ×3 (06:17→22:00)
[2019-07-25] MEDS: METHOCARBAMOL 750 MG TABLET PO SCH ×3 (06:17→22:00)
[2019-07-25] MEDS: PANTOPRAZOLE SODIUM 40 MG TABLET.DR PO SCH (06:17)
[2019-07-25] MEDS: OXYCODONE/APAP 5-325 MG TABLET PO PRN ×2 (09:25→16:50)
[2019-07-25] MEDS: DICYCLOMINE HCL 20 MG TABLET PO SCH ×3 (09:25→16:49)
[2019-07-25] MEDS: DOCUSATE SODIUM 100 MG CAPSULE PO SCH (09:25)
[2019-07-25] MEDS: ESCITALOPRAM OXALATE 10 MG TABLET PO SCH (09:25)
[2019-07-25] MEDS: PROTEIN SUPPLEMENT (PROSTAT) 30 ML LIQUID PO SCH ×3 (09:25→16:49)
[2019-07-25] MEDS: SERTRALINE HCL 50 MG TABLET PO SCH (09:26)
[2019-07-25] MEDS: SIMVASTATIN 20 MG TABLET PO SCH (20:56)
[2019-07-25] MEDS: SENNOSIDES 1 TABLET PO SCH (20:56)
[2019-07-25 20:58] VITALS: BP 122/76
[2019-07-26] MEDS: METHOCARBAMOL 750 MG TABLET PO SCH ×3 (06:16→21:29)
[2019-07-26] MEDS: PANTOPRAZOLE SODIUM 40 MG TABLET.DR PO SCH (06:16)
[2019-07-26] MEDS: OXYCODONE HCL 10 MG TAB.SR.12H PO SCH ×3 (06:16→21:30)
[2019-07-26 06:21] VITALS: BP 121/64
[2019-07-26 06:51] LABS: BASOPHILS # (AUTO) 0.1 K/uL (0.0-8.0); BASOPHILS % (AUTO) 0.9 % (0.0-2.0); EOSINOPHILS # (AUTO) 0.2 K/uL (0.0-0.7); EOSINOPHILS % (AUTO) 3.1 % (0.0-7.0); HEMOGLOBIN 8.8 g/dL (10.9-14.3); LYMPHOCYTES # (AUTO) 0.7 K/uL (20.0-40.0); LYMPHOCYTES % (AUTO) 11.6 % (20.5-51.5); MEAN CORPUSCULAR HEMOGLOBIN 34.4 uug (24.7-32.8); MEAN CORPUSCULAR HGB CONC 34 g/dL (32.3-35.6); MEAN CORPUSCULAR VOLUME 101.4 fL (75.5-95.3); MONOCYTES # (AUTO) 0.7 K/uL (2.0-10.0); NEUTROPHILS # (AUTO) 4.6 K/uL (1.8-8.9); NEUTROPHILS % (AUTO) 73.4 % (38.5-71.5); PLATELET COUNT (AUTO) 394 K/uL (179-408); RED BLOOD CELL COUNT(AUTO) 2.57 MIL/uL (3.63-4.92); WHITE BLOOD COUNT (AUTO) 6.3 K/uL (3.8-11.8)
[2019-07-26 06:56] LABS: CARBON DIOXIDE 29 mmol/L (21-32); CHLORIDE 102 mmol/L (98-107); CREATININE 0.5 mg/dL (0.6-1.3); GLUCOSE 91 mg/dL (74-106); MAGNESIUM 1.6 mg/dL (1.8-2.4); PHOSPHOROUS 3.7 mg/dL (2.5-4.9); POTASSIUM 3.9 mmol/L (3.5-5.1); UREA NITROGEN, BLOOD 10 mg/dL (7-18)
[2019-07-26] MEDS: PROTEIN SUPPLEMENT (PROSTAT) 30 ML LIQUID PO SCH ×3 (09:24→17:45)
[2019-07-26] MEDS: DICYCLOMINE HCL 20 MG TABLET PO SCH ×3 (09:26→17:45)
[2019-07-26] MEDS: ESCITALOPRAM OXALATE 10 MG TABLET PO SCH (09:32)
[2019-07-26] MEDS: DOCUSATE SODIUM 100 MG CAPSULE PO SCH (09:32)
[2019-07-26] MEDS: SERTRALINE HCL 50 MG TABLET PO SCH (09:33)
[2019-07-26] MEDS: OXYCODONE/APAP 5-325 MG TABLET PO PRN ×2 (10:09→18:36)
[2019-07-26] MEDS ORDERED: MAGNESIUM OXIDE 400 MG TABLET PO ONE (12:00)
[2019-07-26 19:19] VITALS: BP 99/74
[2019-07-26] MEDS: SIMVASTATIN 20 MG TABLET PO SCH (20:30)
[2019-07-26] MEDS: SENNOSIDES 1 TABLET PO SCH (20:30)
[2019-07-27] MEDS: METHOCARBAMOL 750 MG TABLET PO SCH ×2 (05:51→14:20)
[2019-07-27] MEDS: PANTOPRAZOLE SODIUM 40 MG TABLET.DR PO SCH (05:51)
[2019-07-27] MEDS: OXYCODONE HCL 10 MG TAB.SR.12H PO SCH ×2 (05:52→14:20)
[2019-07-27 05:55] VITALS: BP 125/63
[2019-07-27] MEDS: DICYCLOMINE HCL 20 MG TABLET PO SCH ×2 (08:24→14:20)
[2019-07-27] MEDS: DOCUSATE SODIUM 100 MG CAPSULE PO SCH (08:24)
[2019-07-27] MEDS: PROTEIN SUPPLEMENT (PROSTAT) 30 ML LIQUID PO SCH ×2 (08:24→12:00)
[2019-07-27] MEDS: SERTRALINE HCL 50 MG TABLET PO SCH (08:25)
[2019-07-27] MEDS: ESCITALOPRAM OXALATE 10 MG TABLET PO SCH (08:25)
[2019-07-27] MEDS ORDERED: MENT71OI TOP (11:25)
[2019-07-27] MEDS ORDERED: OXYC-128 PO (11:25)
[2019-07-27] MEDS ORDERED: DOCU100C36 PO (11:25)
[2019-07-27] MEDS ORDERED: PROT30LI PO (11:25)
== END 2019-07-27 16:25 | disposition home health service (06) | DRG 559 ==
PROVIDERS: ADMIT Physical Medicine & Rehabilitation Pain Medicine; ATTEND Physical Medicine & Rehabilitation Pain Medicine
PROC: 30233N1 Transfusion of Nonautologous Red Blood Cells into Peripheral Vein, Percutaneous Approach (ICD-10-PCS; principal; 2019-07-17)
DX: S72.141D Displaced intertrochanteric fracture of right femur, subsequent encounter for closed fracture with routine healing (principal); E43 Unspecified severe protein-calorie malnutrition; Z68.1 Body mass index [BMI] 19.9 or less, adult; N39.0 Urinary tract infection, site not specified; E78.5 Hyperlipidemia, unspecified; F32.9 Major depressive disorder, single episode, unspecified; F41.9 Anxiety disorder, unspecified; G89.4 Chronic pain syndrome; I10 Essential (primary) hypertension; K21.9 Gastro-esophageal reflux disease without esophagitis; K58.9 Irritable bowel syndrome, unspecified; M81.0 Age-related osteoporosis without current pathological fracture; Z66 Do not resuscitate; D64.9 Anemia, unspecified; W18.30XD Fall on same level, unspecified, subsequent encounter; E83.42 Hypomagnesemia; R26.9 Unspecified abnormalities of gait and mobility; Z88.8 Allergy status to other drugs, medicaments and biological substances; Z91.041 Radiographic dye allergy status; Z96.612 Presence of left artificial shoulder joint; R53.1 Weakness
CPT/HCPCS: 36415; 71045; 73502; 83735; 84100; 84443; 85025; 86850; 86900; 86901; 86920; A4663; J0696; J1650; J7030; J7040; J7060; P9016-BL; P9021

== ENCOUNTER 2021-03-12 20:22 | Emergency (ER) | payer MEDICARE, BC ==
[~2021-03-12] VITALS: Ht 172.7 cm; Wt 77.1 kg
[~2021-03-12 20:22] MED LIST changes: -ALEN70TA6 PO; +DOCU100C36 PO; +MENT71OI TOP; -PANT40TA4 PO; +PANT40TA49 PO; +PROT30LI PO
--- NOTE | 2021-03-12 20:28 | NUR ---
Pt BIB [facility] 86 s/p mechanical fall from home. Pt A/O x3, no SOB or labored breathing. Pt denies any pain/discomfort. Clear speech, complete sentences. Able to move all extremities. Noted with bump on right forehead, unknown KO. Denies any CP/pressure. No GI/ distress. Bed in lowest position for safety precautions.
--- NOTE | 2021-03-12 20:30 | NUR ---
Dr. Qureshi at [facility], [facility] in progress.
[2021-03-12] MEDS ORDERED: LIDOCAINE HCL 2% 20 ML VIAL TP ONE (20:45)
[2021-03-12] MEDS ORDERED: TDAP DIPH,PERTUSS,TET VAC/PF 0.5 ML DISP.SYRIN IM ONE ×2 (20:45→21:13)
--- NOTE | 2021-03-12 20:50 | NUR ---
Lab at bedside.
[2021-03-12 21:11] LABS: HEMATOCRIT 34.3 % (31.2-41.9); MEAN CORPUSCULAR HEMOGLOBIN 33.8 uug (24.7-32.8); MEAN CORPUSCULAR VOLUME 100.3 fL (75.5-95.3); PLATELET COUNT (AUTO) 266 K/uL (179-408)
[2021-03-12 21:12] LABS: CREATININE 0.6 mg/dL (0.6-1.3); POTASSIUM 3.9 mmol/L (3.5-5.1)
--- NOTE | 2021-03-12 21:13 | NUR ---
Pt strongly refused Xray and CT orders despite education from RN and Dr. Qureshi.
--- NOTE | 2021-03-12 21:15 | NUR ---
Received call from pt's daughter .
[2021-03-12 21:18] LABS: BILIRUBIN,DIRECT 0.1 mg/dL (0.0-0.2); BILIRUBIN,TOTAL 0.3 mg/dL (0.2-1.0); TOTAL PROTEIN, SERUM 6.7 g/dL (6.4-8.2)
--- NOTE | 2021-03-12 22:43 | NUR ---
Patient discharged to home in stable condition. A/O x3 no SOB or labored breathing. Afebrile. No changes in LOC. Written and verbal after care instructions given to patient and daughter, verbalized understanding of instructions. Stressed follow up or return to ER for worsening s/s. Picked up by daughter, steady gait. Denies any pain/discomfort.
[2021-03-12 22:45] VITALS: BP 134/73
== END 2021-03-12 22:45 | disposition home or self-care (01) ==
LOC: ER 20:29
DX: S01.81XA Laceration without foreign body of other part of head, initial encounter (principal); W18.30XA Fall on same level, unspecified, initial encounter; Y92.89 Other specified places as the place of occurrence of the external cause; F32.9 Major depressive disorder, single episode, unspecified; E78.00 Pure hypercholesterolemia, unspecified; Z79.899 Other long term (current) drug therapy
CPT/HCPCS: 36415; 70030-TC; 85025; 85730; 90715; 93005; A4663